=== PATIENT | female | born 1995 | race Caucasian/White ===

== ENCOUNTER 2017-02-10 23:34 | Emergency (ER) | payer MEDICAID ==
[~2017-02-10] VITALS: Ht 149.9 cm; Wt 95.0 kg
[~2017-02-10 23:34] MED LIST: IBUP600 PO; OXYC1SOL5 PO; PERI8.6T PO; PREN0.01 PO
[2017-02-10 23:40] VITALS: BP 119/68; PULSE 94; RESP 16; TEMP 98.5; O2SAT 99
[2017-02-11] MEDS ORDERED: ZOLO25TA PO (00:44)
--- NOTE | 2017-02-11 00:52 | PD ---
HPI Chief Complaint: Cold / Flu Symptoms Time Seen by Provider: 00:45 Travel History International Travel<30 days: No Contact w/Intl Traveler<30days: No Traveled to known affect area: No History of Present Illness HPI This is a 21-year-old female who presents for evaluation. For the past 2 days she has had cough, congestion, sneezing, low-grade fevers and chills. She reports that her son had similar symptoms. She has also had loose stools for the past 2 days. Denies abdominal pain, dysuria, pelvic pain, vaginal bleeding or discharge, rash, recent travel, recent antibiotic use. Her last menstrual period was January 20. She has no other complaints. [facility] Past Medical History Medical History: Denies Significant Hx ?: Not LMP: LAST MONTH Past Surgical History Section: Yes Social History Alcohol Use: No Tobacco Use: No Substance Use: No Allergies-Medications (Allergen,Severity, Reaction): Coded Allergies: No Known Allergies (Unverified , 02/11/17) Reported Meds & Prescriptions Reported Meds & Active Scripts Active Reported Zoloft (Sertraline HCl) 25 Mg Tab 25 Mg PO DAILY Review of Systems Except as stated in HPI: all other systems reviewed are Neg Physical Exam Narrative GENERAL: Well-developed well-nourished female in no acute distress SKIN: Warm and dry. HEAD: Atraumatic. Normocephalic. EYES: Pupils equal and round. No scleral icterus. No injection or drainage. ENT: No nasal bleeding or discharge. Mucous membranes pink and moist. NECK: Trachea midline. No JVD. CARDIOVASCULAR: Regular rate and rhythm. No murmur appreciated. RESPIRATORY: No accessory muscle use. Clear to auscultation. Breath sounds equal bilaterally. GASTROINTESTINAL: Abdomen soft, non-tender, nondistended. Hepatic and splenic margins not palpable. MUSCULOSKELETAL: No obvious deformities. No edema. NEUROLOGICAL: Awake and alert. No obvious cranial nerve deficits. Motor grossly within normal limits. Normal speech. Data Data Last Documented VS Vital Signs Date Time Temp Pulse Resp B/P Pulse Ox O2 Delivery O2 Flow Rate FiO2 02/10/17 23:40 98.5 94 16 119/68 99 Orders Chest, Single Ap (02/11/17 ) Influenzae A/B Antigen (02/11/17 00:49) Ed Urine Pregnancytest Poc (02/11/17 00:49) [facility] Medical Decision Making Medical Screen Exam Complete: Yes Emergency Medical Condition: Yes Medical Record Reviewed: Yes Differential Diagnosis Influenza, bronchitis, pneumonia, gastroenteritis, sinusitis Narrative Course 21-year-old female with cough, congestion, sneezing, low-grade fever and loose stools for 2 days. Physical examination is reassuring. Her lungs sound clear. ENT examination is normal. Her abdomen is soft and nontender. Plan is for chest x-ray, influenza antigen, urine test. Chest x-ray normal, influenza antigen test negative, urine test negative. I suspect sinusitis. She is being discharged with Augmentin. Diagnosis Primary Impression: Sinusitis Qualified Code: J01.90 - Acute non-recurrent sinusitis, unspecified location Departure Forms: Tests/Procedures, Work Release Enter return to work date: Feb 13, 2017 Additional Instructions: Medication as prescribed. Stay well hydrated well-nourished and get plenty of rest. Follow-up with primary care physician as needed and return for any emergent medical conditions. Med/Other Pt SpecificInfo: Prescription(s) given Scripts Amoxicillin-Clavulanate (Augmentin)875-125 mg Rlb231 Mg PO BID 10 Days Ref 0 not for use in CrCl <30 ml/min. Prov:Jill Larson MD 02/11/17 Disposition: 01 DISCHARGE HOME Condition: Stable Jeffrey Palomo Feb 11, 2017 00:52
--- NOTE | 2017-02-11 01:13 | RADRPT ---
EXAM DATE/TIME: 02/11/2017 00:59 [place] COMPARISON: No previous studies available for comparison. INDICATIONS : Cough. MEDICAL HISTORY : None. SURGICAL HISTORY : None. ENCOUNTER: Initial ACUITY: 2 days PAIN SCORE: 5/10 LOCATION: Bilateral chest FINDINGS: A single view of the chest demonstrates the lungs to be symmetrically aerated without evidence of mas s, infiltrate or effusion. The cardiomediastinal contours are unremarkable. Osseous structures are intact. CONCLUSION: Normal examination. Prasanth Greenfield Jr., MD on February 11, 2017 at 1:12 Board Certified Radiologist. This report was verified electronically.
[2017-02-11] MEDS ORDERED: AUGM875T PO (02:41)
== END 2017-02-11 02:51 | disposition home or self-care (01) ==
LOC: NETRI 23:34
DX: J01.90 Acute sinusitis, unspecified (principal); R05 Cough; R50.9 Fever, unspecified; R19.7 Diarrhea, unspecified
CPT/HCPCS: 71010; 84703; 87804; 99283

== ENCOUNTER 2017-10-27 10:27 | Emergency (ER) | payer MEDICAID ==
[~2017-10-27] VITALS: Ht 149.9 cm; Wt 88.0 kg
[~2017-10-27 10:27] MED LIST changes: +AUGM875T PO; -IBUP600 PO; -OXYC1SOL5 PO; -PERI8.6T PO; -PREN0.01 PO; +ZOLO25TA PO
[2017-10-27 10:28] VITALS: BP 120/63; PULSE 79; RESP 16; TEMP 98.1; O2SAT 98
--- NOTE | 2017-10-27 11:10 | PD ---
HPI Chief Complaint: Medical Clearance Time Seen by Provider: 10:47 Travel History International Travel<30 days: No Contact w/Intl Traveler<30days: No Traveled to known affect area: No History of Present Illness HPI 22-year-old patient here for evaluation of possible varicose veins. Patient reports she noticed engorged superficial veins to her bilateral legs after her . This has been ongoing for months. She denies any leg swelling. Someone told her she may have a blood clot which caused her to be concerning come in for evaluation. She has no this pain, shortness of breath, swelling of the lower extremities. PFSH Past Medical History Medical History: Denies Significant Hx ?: Not LMP: 10/26/17 Past Surgical History Section: Yes Social History Alcohol Use: No Tobacco Use: No Substance Use: No Allergies-Medications (Allergen,Severity, Reaction): Coded Allergies: No Known Allergies (Unverified Adverse Reaction, Unknown, 10/27/17) Reported Meds & Prescriptions Reported Meds & Active Scripts Active Reported Zoloft (Sertraline HCl) 25 Mg Tab 25 Mg PO DAILY Review of Systems Except as stated in HPI: all other systems reviewed are Neg Physical Exam Narrative GENERAL: Alert well-appearing female. SKIN: Warm and dry. HEAD: Normocephalic. CARDIOVASCULAR: Regular rate and rhythm without RESPIRATORY: Breath sounds equal bilaterally. No accessory muscle use. MUSCULOSKELETAL: No cyanosis, or edema. Patient has bilateral superficial varicose veins to the lower extremities. No pedal edema. No calf tenderness. Negative Homans sign bilaterally. 2+ dorsal pedis pulse Data Data Last Documented VS Vital Signs Date Time Temp Pulse Resp B/P (MAP) Pulse Ox O2 Delivery O2 Flow Rate FiO2 10/27/17 11:20 10/27/17 10:28 98.1 79 16 98 Room Air Orders Orders Ed Discharge Order (10/27/17 11:10) [facility] Medical Decision Making Medical Screen Exam Complete: Yes Emergency Medical Condition: Yes Differential Diagnosis Varicose veins, superficial thrombo phlebitis, very unlikely DVT Narrative Course 22-year-old patient here for evaluation of possible varicose veins. Patient reports she noticed engorged superficial veins to her bilateral legs after her . This has been ongoing for months. She denies any leg swelling. On exam she has a mild case of varicose veins. She has negative Homans sign bilaterally. No calf tenderness. She was instructed to wear compression hose and elevate extremities, resting Diagnosis Primary Impression: Varicose veins of both lower extremities Referrals: [facility] Additional Instructions: With compression hose as discussed. Follow-up the primary doctor. Disposition: 01 DISCHARGE HOME Condition: Stable Viridiana Stiles Oct 27, 2017 11:10
== END 2017-10-27 11:24 | disposition home or self-care (01) ==
LOC: NEPK 10:27
DX: I83.93 Asymptomatic varicose veins of bilateral lower extremities (principal)
CPT/HCPCS: 99282

== ENCOUNTER 2018-01-22 16:59 | Emergency (ER) | payer MEDICAID ==
[~2018-01-22] VITALS: Ht 149.9 cm; Wt 89.0 kg
[~2018-01-22 16:59] MED LIST changes: -AUGM875T PO
[2018-01-22 17:14] VITALS: BP 133/83; PULSE 91; RESP 16; TEMP 99; O2SAT 100
--- NOTE | 2018-01-22 17:26 | PD ---
HPI Chief Complaint: Abnormal Results Time Seen by Provider: 17:25 Travel History International Travel<30 days: No Contact w/Intl Traveler<30days: No Traveled to known affect area: No PFSH Past Medical History ?: Unknown Past Surgical History Section: Yes Social History Alcohol Use: No Tobacco Use: No Substance Use: No Allergies-Medications (Allergen,Severity, Reaction): Coded Allergies: No Known Allergies (Unverified Adverse Reaction, Unknown, 01/22/18) Reported Meds & Prescriptions Reported Meds & Active Scripts Active No Active Prescriptions or Reported Medications Data Data Last Documented VS Vital Signs Date Time Temp Pulse Resp B/P (MAP) Pulse Ox O2 Delivery O2 Flow Rate FiO2 01/22/18 17:14 99.0 91 16 133/83 (100) 100 MDM Scripts No Active Prescriptions or Reported Meds Chani Monk Jan 22, 2018 17:26
--- NOTE | 2018-01-22 17:32 | PD ---
HPI Chief Complaint: Abnormal Results Time Seen by Provider: 17:25 Travel History International Travel<30 days: No Contact w/Intl Traveler<30days: No Traveled to known affect area: No History of Present Illness HPI 22-year-old female presents to emergency department requesting a beta hCG. Patient states that she took several at home test and they are faintly positive. Last menstrual cycle was December 12, 2017. Patient is one weekly on her menstrual cycle. Denies any abdominal pain. No vaginal bleeding or discharge. She has no other symptoms to report. History Past Medical Histgory Medical History: Denies Significant Hx LMP: 12/24 Social History Alcohol Use: No Tobacco Use: No Allergies-Medications (Allergen,Severity, Reaction): Coded Allergies: No Known Allergies (Unverified Adverse Reaction, Unknown, 01/22/18) Reported Meds & Prescriptions Reported Meds & Active Scripts Active No Active Prescriptions or Reported Medications Review of Systems Except as stated in HPI: all other systems reviewed are Neg Physical Exam Narrative GENERAL: Well-nourished, well-developed female patient in no acute distress SKIN: Focused skin assessment warm/dry. HEAD: Normocephalic. EYES: No scleral icterus. No injection or drainage. NECK: Supple, trachea midline. No JVD or lymphadenopathy. CARDIOVASCULAR: Regular rate and rhythm without murmurs, gallops, or rubs. RESPIRATORY: Breath sounds equal bilaterally. No accessory muscle use. GASTROINTESTINAL: Abdomen soft, non-tender, nondistended. MUSCULOSKELETAL: No cyanosis, or edema. BACK: Nontender without obvious deformity. No CVA tenderness. Data Data Last Documented VS Vital Signs Date Time Temp Pulse Resp B/P (MAP) Pulse Ox O2 Delivery O2 Flow Rate FiO2 01/22/18 17:14 99.0 91 16 133/83 (100) 100 MDM Medical Screen Exam Complete: Yes Emergency Medical Condition: No Differential Diagnosis POSSIBLE Narrative Course 22-year-old female presents to emergency department requesting a beta hCG for possible after taking multiple faintly positive at-home test. Patient is one week late on her menstrual cycle. She has no other symptoms. I have explained to her that this is not an emergency and at this time there are no urgent or emergent needs medical intervention identified. I' ve encouraged her to follow-up with the [facility] department. A medical screening exam was performed: At the time of evaluation the presenting medical condition was determined not to be of an emergent nature. The patient was given the option of receiving additional care, but declined. Patient was given options for additional community resources from which to obtain care. The Patient Has Been advised to seek medical attention for their presenting complaint. The patient has been advised to return to the ER at any time if an emergent condition develops. Primary Impression: Encounter for medical screening examination Scripts No Active Prescriptions or Reported Meds Condition: Stable Chani Monk Jan 22, 2018 17:32
== END 2018-01-22 17:36 | disposition left against medical advice (07) ==
LOC: PHED 16:59 → PHEFT 17:36
DX: Z32.00 Encounter for pregnancy test, result unknown (principal)
CPT/HCPCS: 99281

== ENCOUNTER 2018-01-28 17:34 | Emergency (ER) | payer MEDICAID ==
[~2018-01-28] VITALS: Ht 149.9 cm; Wt 87.0 kg
[2018-01-28 17:59] VITALS: BP 116/69; PULSE 110; RESP 18; TEMP 99; O2SAT 99
[2018-01-28] MEDS ORDERED: ZOFR4TAB3 SL (20:58)
[2018-01-28] MEDS ORDERED: LOMO2.5T PO (20:58)
--- NOTE | 2018-01-28 20:59 | PD ---
HPI Chief Complaint: Abdominal Pain Time Seen by Provider: 20:37 Travel History International Travel<30 days: No Contact w/Intl Traveler<30days: No Traveled to known affect area: No History of Present Illness HPI 22-year-old female complains abdominal cramping, nausea vomiting diarrhea. Patient states that the symptoms started yesterday after she ate a burger. Patient states that she started having abdominal cramping around epigastric area yesterday. Patient states that the pain resolved completely last night. Patient started having nausea vomiting yesterday but none today. Patient states that she has diarrhea today. Patient denies any headache. Patient denies any coughing congestion. Patient denies any chest pain or shortness of breath. Patient denies any dysuria or frequency. Patient denies any vaginal discharge or bleeding. PFSH Past Medical History ?: Not LMP: 01/28/18 Past Surgical History Section: Yes Social History Alcohol Use: No Tobacco Use: No Substance Use: No Allergies-Medications (Allergen,Severity, Reaction): Coded Allergies: No Known Allergies (Verified Adverse Reaction, Unknown, 01/28/18) Reported Meds & Prescriptions Reported Meds & Active Scripts Active No Active Prescriptions or Reported Medications Review of Systems General / Constitutional: No: Fever Eyes: No: Visual changes HENT: No: Headaches Cardiovascular: No: Chest Pain or Discomfort Respiratory: No: Shortness of Breath Gastrointestinal: Positive: Nausea, Vomiting, Diarrhea, Abdominal Pain Genitourinary: No: Dysuria Musculoskeletal: No: Pain Skin: No Rash Neurologic: No: Weakness Psychiatric: No: Depression Endocrine: No: Polydipsia Hematologic/Lymphatic: No: Easy Bruising Physical Exam Narrative GENERAL: Well-nourished, well-developed patient. SKIN: Focused skin assessment warm/dry. HEAD: Normocephalic. EYES: No scleral icterus. No injection or drainage. NECK: Supple, trachea midline. No JVD or lymphadenopathy. CARDIOVASCULAR: Regular rate and rhythm without murmurs, gallops, or rubs. RESPIRATORY: Breath sounds equal bilaterally. No accessory muscle use. GASTROINTESTINAL: Abdomen soft, non-tender, nondistended. MUSCULOSKELETAL: No cyanosis, or edema. BACK: Nontender without obvious deformity. No CVA tenderness. Neurologic exam normal. Data Data Last Documented VS Vital Signs Date Time Temp Pulse Resp B/P (MAP) Pulse Ox O2 Delivery O2 Flow Rate FiO2 3/22/18 17:59 99.0 110 18 116/69 (85) 99 Orders Orders Ed Urine Pregnancytest Poc (01/28/18 20:40) [facility] Medical Decision Making Medical Screen Exam Complete: Yes Emergency Medical Condition: Yes Interpretation(s) Urine test negative. Differential Diagnosis Differential diagnosis including gastroenteritis, electrolyte imbalance, dehydration. Narrative Course 22-year-old female with abdominal pain nausea vomiting and diarrhea. The symptoms much better today. Patient only had diarrhea today. Examination benign. No evidence of dehydration. Diagnosis Primary Impression: Gastroenteritis Patient Instructions: General Instructions Additional Instructions: Clear fluid today and advance diet tomorrow. Take medication as needed. Follow -up with personal physician. Return if worse. Med/Other Pt SpecificInfo: Prescription(s) given Scripts Diphenoxylate-Atropine (Lomotil) 2.5-0.025 Mg Tab 1 TAB PO Q6H Y for DIARRHEA, #10 TAB 0 Refills Prov: Dipak Hedrick MD 01/28/18 Ondansetron Odt (Zofran Odt) 4 Mg Tab 4 MG SL Q6HR Y for Nausea/Vomiting, #6 TAB 0 Refills Prov: Dipak Hedrick MD 01/28/18 Disposition: 01 DISCHARGE HOME Condition: Stable Dipak Hedrick MD Jan 28, 2018 20:59
[2018-01-28 21:13] VITALS: BP 130/86
== END 2018-01-28 21:15 | disposition home or self-care (01) ==
LOC: PHED 17:34
DX: K52.9 Noninfective gastroenteritis and colitis, unspecified (principal)
CPT/HCPCS: 84703; 99283